=== PATIENT | male | born 1990 | race American Indian/Alaskan Native ===

== ENCOUNTER 2019-08-10 17:06 | Emergency (ER) | payer OTHER ==
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
[2019-08-10] MEDS ORDERED: IBUPROFEN PO ONE (20:39)
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
[2019-08-10 21:21] VITALS: BP 128/65
== END 2019-08-10 21:15 | disposition home or self-care (01) ==
LOC: ED 17:06
DX: S39.012A Strain of muscle, fascia and tendon of lower back, initial encounter (principal); Z79.899 Other long term (current) drug therapy; V49.49XA Driver injured in collision with other motor vehicles in traffic accident, initial encounter; Y93.89 Activity, other specified; Y92.410 Unspecified street and highway as the place of occurrence of the external cause; Y99.8 Other external cause status